=== PATIENT | female | born 1965 | race American Indian/Alaskan Native ===

== ENCOUNTER 2016-09-09 10:09 | Emergency (ER) | payer OTHER ==
[2016-09-09] MEDS: BENADRYL IV ONE (16:18)
[2016-09-09] MEDS: REGLAN IV ONE (16:19)
[2016-09-09 16:49] VITALS: BP 126/73
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
== END 2016-09-09 17:21 | disposition home or self-care (01) ==
LOC: ED 10:09
DX: S13.4XXA Sprain of ligaments of cervical spine, initial encounter (principal); S46.912A Strain of unspecified muscle, fascia and tendon at shoulder and upper arm level, left arm, initial encounter; R51 Headache; M54.89 Other dorsalgia; I10 Essential (primary) hypertension; V89.2XXA Person injured in unspecified motor-vehicle accident, traffic, initial encounter; Y93.89 Activity, other specified; Y92.89 Other specified places as the place of occurrence of the external cause; Y99.8 Other external cause status
CPT/HCPCS: 96374; 96375; 99282; J1200; J2765

== ENCOUNTER 2020-04-28 22:48 | Emergency (ER) | payer OTHER ==
--- NOTE | 2020-04-29 | Event Note ---
ED Screening Note Date of service: 04/28/20 Time: 23:57 ED Screening Note: 54-year-old -[place] female presents to the emergency room concern for possible seizure versus syncope. It was reported that the heard a thud while patient was in the shower tonight and patient thinks she fainted in the shower. thinks she was having seizure-like activities as she was started support eyes rolled back . Patient is unaware if she hit her head but had loss of consciousness. Still having lightheadedness. Last menstrual period 03/31/2019. History of hypertension on lisinopril 10 mg. This initial assessment/diagnostic orders/clinical plan/treatment(s) is/are subject to change based on patients health status, clinical progression and re- assessment by fellow clinical providers in the ED. Further treatment and workup at subsequent clinical providers discretion. Patient/guardian urged not to elope from the ED as their condition may be serious if not clinically assessed and managed. Initial orders include: CBC CMP EKG CT brain, Phos magnesium blood sugar and TSH
[2020-04-29 00:37] LABS: Basophils % (Auto) 0.3 % (0.0-1.8); Eosinophils # (Auto) 0.1 K/mm3 (0.0-0.4); Eosinophils % (Auto) 1.3 % (0.0-4.3); Hematocrit 29.9 % (30.3-42.9); Hemoglobin 9.6 gm/dl (10.1-14.3); Lymphocytes # (Auto) 2.7 K/mm3 (1.2-5.4); Lymphocytes % (Auto) 32.1 % (13.4-35.0); Mean Corpuscular HGB Conc 32 % (30-34); Mean Corpuscular Volume 82 fl (79-97); Monocytes # (Auto) 0.5 K/mm3 (0.0-0.8); Monocytes % (Auto) 6.3 % (0.0-7.3); Platelet Count 473 K/mm3 (140-440); Red Blood Count 3.63 M/mm3 (3.65-5.03)
[2020-04-29 00:53] LABS: Alanine Aminotransferase 11 units/L (7-56); Albumin 4.6 g/dL (3.9-5); BUN/Creatinine Ratio 18; Blood Urea Nitrogen 11 mg/dL (7-17); Calcium 8.6 mg/dL (8.4-10.2); Hemolysis Index 0
--- NOTE | 2020-04-29 00:59 | Cat Scan Report ---
CT head/brain wo con INDICATION: syncopy with loc and fall. TECHNIQUE: Routine CT head. All CT scans at this location are performed using CT dose reduction for A BERNADETTE by means of automated exposure control. COMPARISON: None. FINDINGS: Intracranial: Resendez-white matter differentiation is maintained. No intracranial hemorrhage. No extra a xial collection. No hydrocephalus. No herniation. Sinuses: Paranasal sinuses and mastoid air cells are essentially clear. Orbits: Globes are intact. Calvarium: No acute fracture. IMPRESSION: 1. No acute intracranial abnormality. Signer Name: Hunter Maldonado MD Signed: 04/29/2020 12:54 AM Workstation Name: [id number]
[2020-04-29] MEDS ORDERED: POTASSIUM CHLORIDE ER 20 MEQ TAB PO ONE (01:36)
--- NOTE | 2020-04-29 01:37 | Emergency Department Report ---
ED General Adult HPI - General Chief complaint: Syncope Stated complaint: POSSIBLE SEIZURE PUI?: No Time Seen by Provider: 04/29/20 01:16 Source: patient, RN notes reviewed Mode of arrival: Ambulatory Limitations: No Limitations - History of Present Illness Initial comments: The patient was evaluated in the emergency department for symptoms described in the history of present illness. He/she was evaluated in the context of the global COVID-19 pandemic, which necessitated consideration that the patient might be at risk for infection with the virus that causes COVID-19. Institutional protocols and algorithms that pertain to the evaluation of patients at risk for COVID-19 are in a state of rapid change based on informatio n released by regulatory bodies including the CDC and federal and state organizations. These policies and algorithms were followed during the patient's care in the emergency department. Please note that these policies, procedures and recommendations changed on a rapid basis. During the history and physical examination, I am chaperoned by nurse Sallie Gates This is a pleasant 54-year-old female. She is not known to myself previously. She has a local primary care doctor. She is perimenopausal, and denies oral contraceptive use, DVT and pulmonary embolism risk factors. She has a history of hypertension and anemia. The patient presents to the ER today with complaint of possible syncope versus seizure. The patient reports feeling like she was in her usual state of health for the whole day, when at 11:00 PM, she sat down in a hot bath, with a hot bathroom, and had a loss of consciousness with some shaking. Prior to this, she states that she was not having any injury, complaint, or symptoms. She specifically denies headache, neck pain, chest pain, abdominal pain, shortness of breath, vomiting, diaphoresis, hematemesis, bright red blood per rectum. She states this is never happened to her before, and she further reports no illicit/illegal drug use. She states that she feels like she is back to her baseline. Her significant other told her that she had some shaking, she believes that this episode lasted for a few seconds. -: Sudden Severity scale (0 -10): 4 Consistency: now resolved Improves with: none Worsens with: none Associated Symptoms: denies other symptoms - Related Data Previous Rx's Medication Instructions Recorded Last Taken Type Potassium Chloride [K-Dur] 20 meq PO BID #30 tab 04/29/20 Unknown Rx lisinopriL [Lisinopril] 10 mg PO QDAY #30 tablet 04/29/20 Unknown Rx Allergies Allergy/AdvReac Type Severity Reaction Status Date / Time No Known Allergies Allergy Unverified 09/09/16 11:06 ED Review of Systems ROS: Stated complaint: POSSIBLE SEIZURE Other details as noted in HPI Comment: All other systems reviewed and negative Cardiovascular: syncope (Seizure versus syncope) ED Past Medical Hx - Past Medical History Previous Medical History?: Yes Hx Hypertension: Yes - Surgical History Past Surgical History?: Yes Hx Breast Surgery: Yes (BREAST AUGMENTATION) Additional Surgical History: TUBAL LIGATION - Social History Smoking Status: Never Smoker - Medications Home Medications: Home Medications Medication Instructions Recorded Confirmed Last Taken Type Potassium Chloride [K-Dur] 20 meq PO BID #30 tab 04/29/20 Unknown Rx lisinopriL [Lisinopril] 10 mg PO QDAY #30 tablet 04/29/20 Unknown Rx ED Physical Exam - General Limitations: No Limitations General appearance: alert, in no apparent distress - Head Head exam: Present: atraumatic, normocephalic - Eye Eye exam: Present: normal appearance, PERRL, EOMI, other (Visual acuity intact to finger counting, color perception, reading at a close distance). Absent: nystagmus - ENT ENT exam: Present: normal exam, normal orophraynx, mucous membranes moist, normal external ear exam - Neck Neck exam: Present: normal inspection, full ROM. Absent: tenderness, meningismus - Respiratory Respiratory exam: Present: normal lung sounds bilaterally. Absent: respiratory distress, wheezes, rales, rhonchi, stridor, decreased breath sounds - Cardiovascular Cardiovascular Exam: Present: regular rate, normal rhythm, normal heart sounds. Absent: bradycardia, tachycardia, irregular rhythm, systolic murmur, diastolic murmur, rubs, gallop - GI/Abdominal GI/Abdominal exam: Present: soft. Absent: distended, tenderness, guarding, rebound, rigid, pulsatile mass - Extremities Exam Extremities exam: Present: normal inspection, full ROM, other (2+ pulses noted in the bilateral upper and lower extremities. There is no palpable cord. negative Homans sign. Muscular compartments are soft. The pelvis is stable.). Absent: pedal edema, calf tenderness - Back Exam Back exam: Present: normal inspection, full ROM. Absent: tenderness, CVA tenderness (R), CVA tenderness (L), paraspinal tenderness, vertebral tenderness - Neurological Exam Neurological exam: Present: alert, oriented X3, normal gait, other (There is no facial droop. The tongue is midline. Extraocular movements are intact bilaterally. There is 5 out of 5 strength in bilateral upper and lower extremities. Sensation is intact to light touch bilateral upper and lower extremities. There is no past-pointing. There is no pronator drift.). Absent: motor sensory deficit - Psychiatric Psychiatric exam: Present: normal affect, normal mood - Skin Skin exam: Present: warm, dry, intact, normal color. Absent: rash ED Course Vital Signs 04/28/20 04/29/20 04/29/20 23:37 01:22 01:24 Temperature 98.6 F Pulse Rate 88 77 Respiratory 20 15 15 Rate Blood Pressure 163/90 Blood Pressure [Right] O2 Sat by Pulse 99 100 100 Oximetry 04/29/20 04/29/20 04/29/20 01:26 01:30 01:46 Temperature Pulse Rate 77 84 82 Respiratory 15 15 11 L Rate Blood Pressure 169/98 162/94 Blood Pressure 169/98 [Right] O2 Sat by Pulse 100 98 99 Oximetry 04/29/20 04/29/20 04/29/20 02:00 02:16 02:30 Temperature Pulse Rate 77 70 66 Respiratory 15 20 19 Rate Blood Pressure 162/94 162/94 162/94 Blood Pressure [Right] O2 Sat by Pulse 99 98 99 Oximetry 04/29/20 04/29/20 03:00 03:30 Temperature Pulse Rate 65 70 Respiratory 19 17 Rate Blood Pressure 155/84 153/84 Blood Pressure [Right] O2 Sat by Pulse 99 100 Oximetry - Reevaluation(s) Reevaluation #1: 04/29/20 02:28 Differential diagnosis, including but not limited to: Orthostasis, vagal event, structural cardiac disease, electrolyte derangement, seizure, pseudoseizure Assessment and plan: 54-year-old female, who is currently clinically sober, with a GCS of 15, NIH score of 0, walks with a steady gait, with a nonfocal and unremarkable neurologic examination, who is not currently tachycardic, tachypneic or hypoxic, who denies DVT/pulmonary embolism risk factors, and is low risk by Wells criteria for pulmonary embolism, low risk for major adverse cardiac event as per heart score, who had episode of seizure versus syncope while sitting in a hot bath. Patient has been resting comfortably in this emergency room for hours. Laboratory studies so far unremarkable with the exception of very mild hypokalemia. EKG mildly abnormal without prior for comparison, however, from a syncope risk stratification standpoint, patient at very low risk for adverse event. I had extensive discussion with the patient regarding various options for management, and work-up. I did offer the patient admission to the hospital for accelerated work-up/evaluation, but the patient is reluctant to be admitted as she is worried about COVID-19, DVT, diarrhea, delirium, slip and fall. She prefers to follow-up with an outpatient primary care doctor or [employer] rep, and I think this plan of care is reasonable. We discussed the risks, benefits, alternatives of admission versus close outpatient cardiology follow-up, and through shared decision-making, we agreed to discharge patient to closely follow-up with outpatient cardiology, assuming the remainder of her work-up in the emergency room is unremarkable. EKG #2 is pending, troponin #2 is pending. Nursing team/social secretary team has faxed her facesheet to [facility] cardiology, whereby as per this institutions policy, procedure, protocol, patient is able to receive expedited outpatient cardiology follow-up. She has a normal neurologic examination, unremarkable noncontrast CT scan of the brain, and no headache or neurologic complaints at this time, this is unlikely to be a primary/secondary seizure disorder. Patient also counseled to not drive or operate motor vehicles for the next 6 months. She has articulated understanding. Patient states anemia is chronic. She denies hematemesis, bright red blood per rectum, , And heavy menstruation currently. She prefers not to take medication for her anemia. Cam[place]onian syncope risk score: -2 points [place] Syncope Risk Score Very low risk 0.7% risk of 30-day serious adverse event (, arrhythmia, [place]) 04/29/20 02:32 04/29/20 02:35 04/29/20 05:15 Patient reevaluated multiple times. Troponin negative x2. EKG unchanged x2. Patient observed in this ER for almost 6 hours without clinical decompensation. She has slightly elevated blood pressure at this time, and reports that her lisinopril has not been taken in around 3 weeks. She asks that I refill her medications. We will do so. Please reference the [employer] clinical policy on asymptomatic elevated blood pressure/hypertension. ED Medical Decision Making - Lab Data Result diagrams: 04/29/20 00:03 04/29/20 00:03 Vital Signs 04/28/20 04/29/20 04/29/20 23:37 01:22 01:24 Temperature 98.6 F Pulse Rate 88 77 Respiratory 20 15 15 Rate Blood Pressure 163/90 Blood Pressure [Right] O2 Sat by Pulse 99 100 100 Oximetry 04/29/20 04/29/20 04/29/20 01:26 01:30 01:46 Temperature Pulse Rate 77 84 82 Respiratory 15 15 11 L Rate Blood Pressure 169/98 162/94 Blood Pressure 169/98 [Right] O2 Sat by Pulse 100 98 99 Oximetry Lab Results 04/29/20 04/29/20 04/29/20 Range/Units 00:03 00:03 00:03 WBC 8.5 (4.5-11.0) K/mm3 RBC 3.63 L (3.65-5.03) M/mm3 Hgb 9.6 L (10.1-14.3) gm/dl Hct 29.9 L (30.3-42.9) % MCV 82 (79-97) fl MCH 26 L (28-32) pg MCHC 32 (30-34) % RDW 17.0 H (13.2-15.2) % Plt Count 473 H (140-440) K/mm3 Lymph % (Auto) 32.1 (13.4-35.0) % [place] % (Auto) 6.3 (0.0-7.3) % Eos % (Auto) 1.3 (0.0-4.3) % Baso % (Auto) 0.3 (0.0-1.8) % Lymph # (Auto) 2.7 (1.2-5.4) K/mm3 [place] # (Auto) 0.5 (0.0-0.8) K/mm3 Eos # (Auto) 0.1 (0.0-0.4) K/mm3 Baso # (Auto) 0.0 (0.0-0.1) K/mm3 Seg Neutrophils % 60.0 (40.0-70.0) % Seg Neutrophils # 5.1 (1.8-7.7) K/mm3 Sodium 141 (137-145) mmol/L Potassium 3.2 L (3.6-5.0) mmol/L Chloride 101.3 (98-107) mmol/L Carbon Dioxide 28 (22-30) mmol/L Anion Gap 15 mmol/L BUN 11 (7-17) mg/dL Creatinine 0.6 (0.6-1.2) mg/dL Estimated GFR > 60 ml/min BUN/Creatinine Ratio 18 % Glucose 120 H (65-100) mg/dL Calcium 8.6 (8.4-10.2) mg/dL Phosphorus 2.70 (2.5-4.5) mg/dL Magnesium 2.00 (1.7-2.3) mg/dL Total Bilirubin 0.20 (0.1-1.2) mg/dL AST 16 (5-40) units/L ALT 11 (7-56) units/L Alkaline Phosphatase 117 (35-129) units/L Total Creatine Kinase (30-135) units/L Troponin T (0.00-0.029) ng/mL Total Protein 8.4 H (6.3-8.2) g/dL Albumin 4.6 (3.9-5) g/dL Albumin/Globulin Ratio 1.2 % TSH 3.250 (0.270-4.200) mlU/mL HCG, Quant (0-4) mIU/mL 04/29/20 04/29/20 Range/Units 00:03 00:03 WBC (4.5-11.0) K/mm3 RBC (3.65-5.03) M/mm3 Hgb (10.1-14.3) gm/dl Hct (30.3-42.9) % MCV (79-97) fl MCH (28-32) pg MCHC (30-34) % RDW (13.2-15.2) % Plt Count (140-440) K/mm3 Lymph % (Auto) (13.4-35.0) % [place] % (Auto) (0.0-7.3) % Eos % (Auto) (0.0-4.3) % Baso % (Auto) (0.0-1.8) % Lymph # (Auto) (1.2-5.4) K/mm3 [place] # (Auto) (0.0-0.8) K/mm3 Eos # (Auto) (0.0-0.4) K/mm3 Baso # (Auto) (0.0-0.1) K/mm3 Seg Neutrophils % (40.0-70.0) % Seg Neutrophils # (1.8-7.7) K/mm3 Sodium (137-145) mmol/L Potassium (3.6-5.0) mmol/L Chloride (98-107) mmol/L Carbon Dioxide (22-30) mmol/L Anion Gap mmol/L BUN (7-17) mg/dL Creatinine (0.6-1.2) mg/dL Estimated GFR ml/min BUN/Creatinine Ratio % Glucose (65-100) mg/dL Calcium (8.4-10.2) mg/dL Phosphorus (2.5-4.5) mg/dL Magnesium (1.7-2.3) mg/dL Total Bilirubin (0.1-1.2) mg/dL AST (5-40) units/L ALT (7-56) units/L Alkaline Phosphatase (35-129) units/L Total Creatine Kinase 164 H (30-135) units/L Troponin T < 0.010 (0.00-0.029) ng/mL Total Protein (6.3-8.2) g/dL Albumin (3.9-5) g/dL Albumin/Globulin Ratio % TSH (0.270-4.200) mlU/mL HCG, Quant < 2 (0-4) mIU/mL - EKG Data -: EKG Interpreted by Md EKG shows normal: sinus rhythm Rate: normal - EKG Data When compared to previous EKG there are: previous EKG unavailable 04/29/20 02:31 EKG interpretation, 12: 16 a.m. Sinus rhythm, 79 bpm, left axis deviation, left anterior fascicular block, QTC 463 ms. Abnormal EKG. Not a STEMI. There is no prior for comparison 04/29/20 03:56 EKG #2 is unchanged from prior with the poor R wave progression.. Not consistent with a STEMI. Left axis deviation is persistent 04/29/20 03:57 - Radiology Data Radiology results: pending, report reviewed, image reviewed CT head/brain wo con INDICATION: syncopy with loc and fall. TECHNIQUE: Routine CT head. All CT scans at this location are performed using CT dose reduction for ALARA by means of automated exposure control. COMPARISON: None. FINDINGS: Intracranial: Resendez-white matter differentiation is maintained. No intracranial hemorrhage. No extra axial collection. No hydrocephalus. No herniation. Sinuses: Paranasal sinuses and mastoid air cells are essentially clear. Orbits: Globes are intact. Calvarium: No acute fracture. IMPRESSION: 1. No acute intracranial abnormality. Signer Name: Hunter Maldonado MD Signed: 04/28/2020 11:54 PM Workstation Name: [id number] Critical care attestation.: If time is entered above; I have spent that time in minutes in the direct care of this critically ill patient, excluding procedure time. ED Disposition Clinical Impression: History of convulsions, Anemia, Hypokalemia, Elevated blood pressure reading, Medication refill Disposition: DC-01 TO HOME OR SELFCARE Is pt being admited?: No Does the pt Need Aspirin: No Condition: Good Instructions: Hypokalemia, Seizure, Adult, Syncope Additional Instructions: Recommend that patient not drive or operate motor vehicles for the next 6 months, or until cleared to do so by her primary care doctor, neurologist or [employer] rep. We recommend follow-up with a [employer] rep within the next 3 to 5 days. Patient's facesheet/contact information has been sent to [facility] cardiology, whereby the patient should receive a phone call from this group within the next day or so to arrange outpatient cardiology follow-up. However, we also recommend that the patient reach out to this group first thing in the morning, to arrange close outpatient cardiology follow-up. Avoid consumption of Motrin, ibuprofen, Naprosyn, Aleve, heavy and spicy foods. Take the potassium supplementation as directed. Drink 6 cups of water per day. Eat plenty of fiber, vegetables, green vegetables, lean protein, avoid consumption of alcohol, tobacco, smoke products. Please return to the emergency room right away with new pain, worsened pain, migration of pain, projectile vomiting, change in mental status, confusion, inability to tolerate liquid feeds, new, worsened or different symptoms not present on the initial emergency room evaluation. Please take the potassium supplementation as directed. Prescriptions: Potassium Chloride [K-Dur] 20 meq PO BID #30 tab lisinopriL [Lisinopril] 10 mg PO QDAY #30 tablet Referrals: [facility] [Provider Group] - 3-5 Days SANJUANA SPANN MD [Staff Physician] - 3-5 Days Forms: Work/School Release Form(ED) Heart Score - HEART Score History: Slightly suspicious EKG: Non-specific Age: 45-65 Risk factors: 1-2 risk factors Troponin: < normal limit HEART Score: 3 - Critical Actions Critical Actions: 0-3 pts:0.9-1.7%risk of adverse cardiac event.Candidate for discharge
[2020-04-29] MEDS ORDERED: LISINOPRIL 10 MG TAB PO ONE (05:14)
[2020-04-29 05:16] VITALS: BP 194/80
== END 2020-04-29 05:54 | disposition home or self-care (01) ==
LOC: ED 22:48
DX: D64.9 Anemia, unspecified (principal); R03.0 Elevated blood-pressure reading, without diagnosis of hypertension; R56.9 Unspecified convulsions; E87.6 Hypokalemia; Z76.0 Encounter for issue of repeat prescription; I10 Essential (primary) hypertension; Z98.51 Tubal ligation status; Z79.899 Other long term (current) drug therapy
CPT/HCPCS: 36415; 70450; 80053; 82550; 83735; 84100; 84443; 84484; 84702; 85025; 93005